=== PATIENT | male | born 1940 ===

== ENCOUNTER 2016-06-13 17:25 | Inpatient (IN) | payer OTHER, SELFPAY ==
[2016-06-13 17:27] VITALS: BMI 20.2
[2016-06-13] MEDS ORDERED: Sodium Chloride 0.9% 500 ML IV STA (17:45)
--- NOTE | 2016-06-13 18:13 | CT ---
PROCEDURE: CT HEAD WITHOUT CONTRAST. HISTORY: ams COMPARISON: None available. TECHNIQUE: Axial computed tomography images were obtained through the head/brain without intravenous contrast. Radiation dose: Total exam DLP = 1146.88 mGy-cm. This CT exam was performed using one or more of the following dose reduction techniques: Automated exposure control, adjustment of the mA and/or kV according to patient size, and/or use of iterative reconstruction technique. FINDINGS: HEMORRHAGE: No intracranial hemorrhage. BRAIN: Diffuse atrophy with prominence of the ventricles and sulci noted. No mass effect or edema. Mild scattered white matter hypodensities, which are nonspecific, but often seen with chronic microvascular ischemic disease. Please note that MRI with diffusion imaging is more sensitive in the detection of acute ischemic event. VENTRICLES: Ventricular prominence may be mildly out of proportion to sulcal size. Prominence may be due to significant central volume loss or mild chronic obstructive hydrocephalus, noncommunicating variant. Normal-pressure hydrocephalus considered only if clinical triad is present. Correlate clinically. CALVARIUM: Unremarkable. PARANASAL SINUSES: Partial opacification of the left anterior ethmoid air cells. Small fluid levels within the left sphenoid and bilateral maxillary sinuses. MASTOID AIR CELLS: Unremarkable as visualized. No inflammatory changes. OTHER FINDINGS: None. IMPRESSION: Ventricular prominence may be mildly out of proportion to sulcal size. Prominence may be due to significant central volume loss or mild chronic obstructive hydrocephalus, noncommunicating variant. Normal-pressure hydrocephalus considered only if clinical triad is present. Correlate clinically. Generalized atrophy. Nonspecific white matter changes. Partial opacification of the left anterior ethmoid air cells. Small fluid levels within the left sphenoid and bilateral maxillary sinuses. Correlate clinically for sinusitis.
--- NOTE | 2016-06-13 18:28 | ED PDOC ---
HPI: Altered Mental Status Time Seen by Provider: 06/13/16 17:33 Chief Complaint (Nursing): Altered Mental Status Chief Complaint (Provider): Altered Mental Status History Per: Other (Obtained from previous medical charts as well as from PD at bedside) History/Exam Limitations: Clinical Condition (oriented x1) Onset Of Symptoms: Cannot Confirm Onset Description Of Symptoms: Confused Usual Baseline: Unknown Exacerbating Factor(s): Unknown Additional Complaint(s): 17:32 Rey Campbell, a 75 year old male, presents to the ED on 06/13/16 accompanied by the police. The patient was found wandering the street and is alert and oriented times 1 at time of initial evaluation. The patient is unable to give any history, limiting HPI/ROS, but denies any complaints at this time. The patient's past medical history was obtained from previous charts, including recent hospitalization at [facility] in April 2016. The patient has pancreatic cancer and started chemotherapy by Dr. Rowan (Hematology/Oncology) on 06/08/16. 18:45 Of note, the patient's daughter was contacted and reports that the patient lives alone and has recently had episodes of confusion. The daughter was concerned about his ability to live by himself and is aware of the patient's past medical history and that he recently has started chemotherapy. Past Medical History Reviewed: Historical Data, Nursing Documentation, Vital Signs Vital Signs: Last Vital Signs Temp 98.6 F 06/13/16 17:55 Pulse 104 H 06/13/16 17:55 Resp 18 06/13/16 17:55 BP 150/94 H 06/13/16 17:55 Pulse Ox 96 06/13/16 17:55 - Medical History PMH: Asthma, Gastritis (Self reported; all other history obtained from previous medical charts), Malignancy (pancreatic cancer) Denies: HIV, Chronic Kidney Disease Other PMH: Recent obstructive jaundice - Surgical History Surgical History: Denies: Pacemaker Other surgeries: Hepatobiliary surgery for obstructive jaundice; ERCP with stenting; when asked, patient does not remember any of these procedures - Family History Family History: States: Unknown Family Hx - Living Arrangements Living Arrangements: Alone - Immunization History Hx Tetanus Toxoid Vaccination: No Hx Influenza Vaccination: No Hx Pneumococcal Vaccination: No - Home Medications Home Medications: Ambulatory Orders Medication Instructions Recorded Dronabinol [Marinol] 2.5 mg PO BID #60 cap 05/11/16 Albuterol HFA [Ventolin HFA 90 2 puff IH Q4H PRN 06/13/16 mcg/actuation (8 g)] Pantoprazole Sodium [Protonix] 20 mg PO DAILY 06/13/16 oxyCODONE/Acetaminophen [Percocet 1 tab PO Q4H PRN 06/13/16 5/325 mg Tab] - Allergies Allergies/Adverse Reactions: Allergies Allergy/AdvReac Type Severity Reaction Status Date / Time No Known Allergies Allergy Verified 06/13/16 17:31 Review of Systems Review Of Systems: ROS cannot be obtained secondary to pt's inabilty to answer questions. (Unable to obtain due to patient's orientation status) Physical Exam - Reviewed Nursing Documentation Reviewed: Yes Vital Signs Reviewed: Yes - Physical Exam Appears: Positive for: Non-toxic, No Acute Distress. Negative for: Well ( appears cachectic and chronically ill ) Head Exam: Positive for: ATRAUMATIC, NORMOCEPHALIC Skin: Positive for: Warm, Dry, Pallor Eye Exam: Positive for: EOMI, PERRL, Other (Pale conjunctiva ) ENT: Positive for: Pharynx Is (Clear), Other (Dry Mucus Membranes) Neck: Positive for: Normal, Painless ROM, Supple, Trachea Midline Cardiovascular/Chest: Positive for: Tachycardia (regular rhythm). Negative for : Murmur Respiratory: Positive for: Normal Breath Sounds (clear to auscultation bilaterally). Negative for: Wheezing, Respiratory Distress Gastrointestinal/Abdominal: Positive for: Other (skin tenting of abdomen). Negative for: Mass, Guarding, Rebound Back: Positive for: Normal Inspection. Negative for: L CVA Tenderness, R CVA Tenderness, Decreased ROM Extremity: Positive for: Normal ROM Lymphatic: Negative for: Adenopathy Neurologic/Psych: Positive for: Alert, Oriented (x1), Mood/Affect (anxious affect), Other (occasional tremor ). Negative for: Motor/Sensory Deficits - Laboratory Results Result Diagrams: 06/14/16 06:20 06/14/16 06:20 - ECG O2 Sat by Pulse Oximetry: 96 (RA) Pulse Ox Interpretation: Normal - CT Scan/US CT Head w/o Contrast Other Rad Studies (CT/US): Read By Radiologist, Radiology Report Reviewed Other Rad Interpretation: See MDM Medical Decision Making Medical Decision Makin:32 Initial Impression: Altered Mental Status Initial Plan: * CT Head w/o Contrast Stat * Electrocardiogram * Alcohol Serum Stat * Ammonia Stat * Comp Metabolic Panel * Drug Screen, Urine * Lact Acid, Plasma Stat * Lipase Stat * Magnesium Stat * Phosphorus Stat * Thyroid Stimulating Hormone * Troponin I Stat * ED Urine dipstick (POC) Stat * CBC (with differential) Stat * Partial Thromoplastin Time [COAG] Stat * Prothrombin Time [COAG] Stat * Chest Portable [RAD] Stat * Blood Culture Stat * Urine Culture Stat * Director Safety Council CONT * Saline Lock Stat * Glucose, Blood, POC Stat * Urinalysis Stat * Type and Screen Routine * Sodium Chloride 0.9% 500 ml IV 500 mls/hr * Reevaluation 18:12 CT Head Report Reviewed: FINDINGS: HEMORRHAGE: No intracranial hemorrhage. BRAIN: Diffuse atrophy with prominence of the ventricles and sulci noted. No mass effect or edema. Mild scattered white matter hypodensities, which are nonspecific, but often seen with chronic microvascular ischemic disease. Please note that MRI with diffusion imaging is more sensitive in the detection of acute ischemic event. VENTRICLES: Ventricular prominence may be mildly out of proportion to sulcal size. Prominence may be due to significant central volume loss or mild chronic obstructive hydrocephalus, noncommunicating variant. Normal-pressure hydrocephalus considered only if clinical triad is present. Correlate clinically. CALVARIUM: Unremarkable. PARANASAL SINUSES: Partial opacification of the left anterior ethmoid air cells. Small fluid levels within the left sphenoid and bilateral maxillary sinuses. MASTOID AIR CELLS: Unremarkable as visualized. No inflammatory changes. OTHER FINDINGS: None. IMPRESSION: Ventricular prominence may be mildly out of proportion to sulcal size. Prominence may be due to significant central volume loss or mild chronic obstructive hydrocephalus, noncommunicating variant. Normal-pressure hydrocephalus considered only if clinical triad is present. Correlate clinically. Generalized atrophy. Nonspecific white matter changes. Partial opacification of the left anterior ethmoid air cells. Small fluid levels within the left sphenoid and bilateral maxillary sinuses. Correlate clinically for sinusitis. 19:[address] Rowan Oncology, who is familiar with patient from previous hospitalization at [facility]. Will follow during this hospitalization. Patient will be admitted to Med/Surgery as a full inpatient under the service of family practice for further treatment of dehydration, leukopenia, and anemia. Daughter has been updated to current plan and is in agreement. Scribe Attestation: Documented by Korina Suh, training under Giselle Kohler, acting as a scribe for Kaia Sanchez MD. Provider Scribe Attestation: All medical record entries made by the Scribe were at my direction and personally dictated by me. I have reviewed the chart and agree that the record accurately reflects my personal performance of the history, physical exam, medical decision making, and the department course for this patient. I have also personally directed, reviewed, and agree with the discharge instructions and disposition. Disposition - Clinical Impression Clinical Impression: Altered mental status, Pancreatic cancer, Pancytopenia - Patient ED Disposition Is Patient to be Admitted: Yes Discussed With Dr.: Arnulfo Randolph Doctor Will See Patient In The: Hospital Counseled Patient/Family Regarding: Studies Performed, Diagnosis - Disposition Disposition Time: 19:42 Condition: FAIR - Pt Status Changed To: Hospital Disposition Of: Inpatient - Admit Certification Admit to Inpatient:: After my assessment, the patient will require hospitalization for at least two midnights. This is because of the severity of symptoms shown, intensity of services needed, and/or the medical risk in this patient being treated as an outpatient. - POA Present On Arrival: None
[2016-06-13 18:57] LABS: ALB/GLOB RATIO 1.1 (1.0-2.1); ALCOHOL SERUM < 10 mg/dl (0-10); ALKALINE PHOSPHATASE 137 U/L (38-126); ALT/SGPT 61 U/L (21-72); AST/SGOT 69 U/L (17-59); BILIRUBIN,TOTAL 1.7 mg/dl (0.2-1.3); BLOOD UREA NITROGEN 19 mg/dl (9-20); CALCIUM 8.9 mg/dL (8.4-10.2); CARBON DIOXIDE 27 mmol/L (22-30); CHLORIDE 87 mmol/L (98-107); GFR AFRICAN-AMERICAN > 60; GLUCOSE,RANDOM 102 mg/dL (75-110); LIPASE 12 U/L (23-300); MAGNESIUM 1.8 MG/DL (1.6-2.3); PHOSPHOROUS 2.8 mg/dl (2.5-4.5); SODIUM 125 mmol/l (132-148); TOTAL PROTEIN 6.6 G/DL (6.3-8.2)
[2016-06-13 19:00] LABS: HEMATOCRIT 26.2 % (35.0-51.0)
[2016-06-13 19:01] LABS: BASO % 0.3 % (0.0-2.0); EOS % 0.1 % (0.0-4.0); LYMPH # 0.1 K/uL (1.0-4.3); LYMPH % 15.8 % (20.0-40.0); MEAN CELL VOLUME 91.1 fl (80.0-94.0); MEAN CORPUSCULAR HEMOGLOBIN 31.1 pg (27.0-31.0); MEAN CORPUSCULAR HGB CONC 34.1 g/dL (33.0-37.0); MEAN PLATELET VOLUME 7.4 fl (7.2-11.7); MONO % 5.1 % (0.0-10.0); NEUT # 0.6 K/uL (1.8-7.0); NEUT % 78.7 % (50.0-75.0); RED CELL DISTRIBUTION WIDTH 15.6 % (11.5-14.5)
[2016-06-13 19:13] LABS: WHITE BLOOD COUNT 0.7 K/uL (4.8-10.8)
[2016-06-13 19:26] LABS: THYROID STIMULATING HORMONE 2.52 mIU/ML (0.46-4.68)
[2016-06-13 20:04] LABS: PARTIAL THROMBOPLASTIN TIME 32.2 SECONDS (23.3-32.5)
[2016-06-13] MEDS ORDERED: Albuterol HFA 90 mcg/actuation (8 g) IH PRN (20:29)
[2016-06-13] MEDS ORDERED: Oxycodone/Acetaminophen 5/325 mg Tab PO PRN (20:30)
[2016-06-13] MEDS ORDERED: Sodium Chloride 0.9% 1,000 ML IV SCH (20:30)
--- NOTE | 2016-06-13 20:37 | CP.PCM.HP ---
History of Present Illness - History of Present Illness History of Present Illness: 75yo M with PMHx pancreatic CA, asthma, obstructive jaundice, malnutrition admitted for dehydration, leukopenia. Pt had recent hospitalization 05/11/16 for abd pain d/t obstructive jaundice with MRCP and ERCP w/[facility] PET/CT 04/27/16 showed no metastatic disease. Pt was found wandering around bus stop. Pt is not cooperative for remaining history and ROS. Recently started on chemo with H/O Dr. Rowan. Chart reviewed per [facility] and [facility] PMHx: as above FHx: mother-DM SHx: denies Social Hx: exsmoker, denies EtOH, drugs Allergies: NKDA Meds: checked in [facility] ED course VSS CT head-consider NPH if clinically correlated, otherwise no acute change EKG NSR CXR CBC, leukopenia 0.7, thrombocytopenia plt 69 INR 1.13, PTT 32.2 CMP- Na 125, BUN/Cr 19/0.6, Bili 1.7, AST/ALT/Alk phos 69/61/137 Ammonia <9 LA 1.3 Mg 1.8 Phos 2.8 troponin neg lipase 12 TSH WNL Albumin 3.4 U tox - positive cannabinoids blood cx urine cx NS 500ml bolus x1 c/s H/O Dr. Rowan Present on Admission - Present on Admission Any Indicators Present on Admission: No Review of Systems - Review of Systems Review of Systems: limited ROS as pt not cooperative pt states chronic abd pain comfortable Past Patient History - Past Medical History & Family History Past Medical History?: Yes - Past Social History Smoking Status: Former Smoker - CARDIAC Hx Pacemaker: No - PULMONARY Hx Asthma: Yes - NEUROLOGICAL Hx Neurological Disorder: No Hx Paralysis: No - HEENT Hx HEENT Problems: No - RENAL Hx Chronic Kidney Disease: No - ENDOCRINE/METABOLIC Hx Endocrine Disorders: No Other/Comment: pre diabetic - HEMATOLOGICAL/ONCOLOGICAL Hx Human Immunodeficiency Virus (HIV): No - INTEGUMENTARY Hx Dermatological Problems: Yes Hx Squamous Cell: Yes (FACE) - MUSCULOSKELETAL/RHEUMATOLOGICAL Hx Musculoskeletal Disorders: No - GASTROINTESTINAL Hx Gastritis: Yes (Self reported; all other history obtained from previous medical charts) - GENITOURINARY/GYNECOLOGICAL Hx Genitourinary Disorders: No - PSYCHIATRIC Hx Psychophysiologic Disorder: No Hx Substance Use: No - SURGICAL HISTORY Hx Surgeries: Yes (COLONOSCOPY) - ANESTHESIA Hx Anesthesia: No Hx Anesthesia Reactions: No Hx Malignant Hyperthermia: No Meds Allergies/Adverse Reactions: Allergies Allergy/AdvReac Type Severity Reaction Status Date / Time No Known Allergies Allergy Verified 06/13/16 17:31 Physical Exam - Constitutional Appears: Non-toxic, No Acute Distress - Head Exam Head Exam: ATRAUMATIC, NORMAL INSPECTION - Eye Exam Eye Exam: Normal appearance - ENT Exam ENT Exam: Mucous Membranes Dry - Neck Exam Neck exam: Positive for: Normal Inspection - Respiratory Exam Respiratory Exam: Clear to Auscultation Bilateral - Cardiovascular Exam Cardiovascular Exam: REGULAR RHYTHM - GI/Abdominal Exam GI & Abdominal Exam: Soft, Tenderness - Extremities Exam Extremities exam: Positive for: normal capillary refill, pedal edema (trace). Negative for: tenderness Additional comments: abrasion b/l knees with granulation tissue - Neurological Exam Neurological exam: Alert Additional comments: oriented to person - Skin Skin Exam: Dry Results - Vital Signs Recent Vital Signs: Last Vital Signs Temp 98.6 F 06/13/16 17:55 Pulse 104 H 06/13/16 17:55 Resp 18 06/13/16 17:55 BP 150/94 H 06/13/16 17:55 Pulse Ox 96 06/13/16 20:29 - Labs Result Diagrams: 06/13/16 18:56 06/13/16 18:10 Labs: Laboratory Results - last 24 hr 06/13/16 06/13/16 06/13/16 17:50 18:10 18:10 WBC RBC Hgb Hct MCV MCH MCHC RDW Plt Count MPV Neut % (Auto) Lymph % (Auto) [place] % (Auto) Eos % (Auto) Baso % (Auto) Neut # Lymph # [place] # Eos # Baso # PT INR APTT Sodium 125 L Potassium 4.0 Chloride 87 L Carbon Dioxide 27 Anion Gap 15 BUN 19 Creatinine 0.6 L Est GFR ( Amer) > 60 Est GFR (Non-Af Amer) > 60 Random Glucose 102 Lactic Acid 1.3 Calcium 8.9 Phosphorus 2.8 Magnesium 1.8 Total Bilirubin 1.7 H AST 69 H ALT 61 Alkaline Phosphatase 137 H Ammonia < 9 L Troponin I < 0.0120 Total Protein 6.6 Albumin 3.4 L Globulin 3.2 Albumin/Globulin Ratio 1.1 Lipase 12 L TSH 3rd Generation 2.52 Urine Opiates Screen Urine Methadone Screen Ur Barbiturates Screen Ur Phencyclidine Scrn Ur Amphetamines Screen U Benzodiazepines Scrn U Oth Cocaine Metabols U Cannabinoids Screen Alcohol, Quantitative < 10 Blood Type Antibody Screen BBK History Checked 06/13/16 06/13/16 06/13/16 18:10 18:56 19:43 WBC 0.7 L* D RBC 2.87 L Hgb 8.9 L D Hct 26.2 L MCV 91.1 MCH 31.1 H MCHC 34.1 RDW 15.6 H Plt Count 69 L D MPV 7.4 Neut % (Auto) 78.7 H Lymph % (Auto) 15.8 L [place] % (Auto) 5.1 Eos % (Auto) 0.1 Baso % (Auto) 0.3 Neut # 0.6 L Lymph # 0.1 L [place] # 0.0 Eos # 0.0 Baso # 0.0 PT 11.7 H INR 1.13 H APTT 32.2 Sodium Potassium Chloride Carbon Dioxide Anion Gap BUN Creatinine Est GFR ( Amer) Est GFR (Non-Af Amer) Random Glucose Lactic Acid Calcium Phosphorus Magnesium Total Bilirubin AST ALT Alkaline Phosphatase Ammonia Troponin I Total Protein Albumin Globulin Albumin/Globulin Ratio Lipase TSH 3rd Generation Urine Opiates Screen Urine Methadone Screen Ur Barbiturates Screen Ur Phencyclidine Scrn Ur Amphetamines Screen U Benzodiazepines Scrn U Oth Cocaine Metabols U Cannabinoids Screen Alcohol, Quantitative Blood Type O POSITIVE Antibody Screen Negative BBK History Checked No verified bt 06/13/16 19:45 WBC RBC Hgb Hct MCV MCH MCHC RDW Plt Count MPV Neut % (Auto) Lymph % (Auto) [place] % (Auto) Eos % (Auto) Baso % (Auto) Neut # Lymph # [place] # Eos # Baso # PT INR APTT Sodium Potassium Chloride Carbon Dioxide Anion Gap BUN Creatinine Est GFR ( Amer) Est GFR (Non-Af Amer) Random Glucose Lactic Acid Calcium Phosphorus Magnesium Total Bilirubin AST ALT Alkaline Phosphatase Ammonia Troponin I Total Protein Albumin Globulin Albumin/Globulin Ratio Lipase TSH 3rd Generation Urine Opiates Screen Negative Urine Methadone Screen Negative Ur Barbiturates Screen Negative Ur Phencyclidine Scrn Negative Ur Amphetamines Screen Negative U Benzodiazepines Scrn Negative U Oth Cocaine Metabols Negative U Cannabinoids Screen Positive H Alcohol, Quantitative Blood Type Antibody Screen BBK History Checked Assessment & Plan - Assessment and Plan (Free Text) Assessment: 75yo M with PMHx pancreatic CA, asthma, obstructive jaundice, malnutrition admitted for dehydration, leukopenia. dehydration -BUN/Cr 19/0.6 -NS MIVF leukopenia -WBC 0.7 -H/O on board, appreciate input -will likely decrease once pt recieves IV fluid -blood cx -urine cx thrombocytopenia -plt 69 -hold on lovenox -H/O on board, appreciate input hyponatremia -Na 125 -confusion, AAOx1 -NS MIVF, consider stopping once dehydration and confusion improves -check Na q4 hr, slow correction <8mEq in 1st 24hr elevated LFTs -h/o obstructive jaundice recently tx with MRCP/ERCP and stenting -Bili 1.7 -AST/ALT/Alk phos 69/61/137 -INR 1.13, PTT 32.2 asthma -albuterol prn pancreatic CA -PET/CT 04/27/16 showed no metastatic disease -H/O on board, appreciate input DVT ppx -SCDs -will hold on pharmacological agent as plt likely to decrease once pt receives MIVF Decision To Admit - Pt Status Changed To: Hospital Disposition Of: Inpatient - Admit Certification Admit to Inpatient:: After my assessment, the patient will require hospitalization for at least two midnights. This is because of the severity of symptoms shown, intensity of services needed, and/or the medical risk in this patient being treated as an outpatient. - . Bed Request Type: Telemetry Admitting Physician: Angela Christianson
[2016-06-13] MEDS: Sodium Chloride 0.9% 1,000 ML IV SCH (21:00)
[2016-06-13 21:23] LABS: URINE APPEARANCE CLEAR (CLEAR); URINE BILIRUBIN NEGATIVE (NEGATIVE); URINE BLOOD NEGATIVE (NEGATIVE); URINE COLOR YELLOW (YELLOW); URINE GLUCOSE (UA) NEG (Normal); URINE KETONE TRACE mg/dL (NEGATIVE); URINE LEUKOCYTE ESTERASE NEG Leu/uL (Negative); URINE PROTEIN NEGATIVE (NEGATIVE); URINE UROBILINOGEN 0.2-1.0 mg/dL (0.2-1.0)
[2016-06-14 06:56] LABS: ALKALINE PHOSPHATASE 106 U/L (38-126); ALT/SGPT 55 U/L (21-72); AST/SGOT 58 U/L (17-59); BILIRUBIN,TOTAL 1.3 mg/dl (0.2-1.3); BLOOD UREA NITROGEN 13 mg/dl (9-20); CALCIUM 8.1 mg/dL (8.4-10.2); CARBON DIOXIDE 26 mmol/L (22-30); CHLORIDE 90 mmol/L (98-107); GFR AFRICAN-AMERICAN > 60; GLUCOSE,RANDOM 82 mg/dL (75-110); POTASSIUM 3.3 MMOL/L (3.6-5.0); SODIUM 127 mmol/l (132-148); TOTAL PROTEIN 5.6 G/DL (6.3-8.2)
[2016-06-14 07:25] LABS: HEMATOCRIT 25.8 % (35.0-51.0); RED CELL DISTRIBUTION WIDTH 15.8 % (11.5-14.5)
[2016-06-14] MEDS ORDERED: PRO AIR HFA 8.5GM INHALER(FOR OR USE ONLY) IH PRN (07:30)
[2016-06-14 07:32] LABS: WHITE BLOOD COUNT 1.5 K/uL (4.8-10.8)
[2016-06-14] MEDS ORDERED: Potassium CL 10mEq/100ml 100 ML IVPB SCH (08:00)
--- NOTE | 2016-06-14 08:09 | CP.PCM.PN ---
Subjective - Date & Time of Evaluation Date of Evaluation: 06/14/16 Time of Evaluation: 08:09 - Subjective Subjective: pt seen and examined at bedside along with Dr. Beugm. No acute events overnight. Lying in bed comfortably, NAD, under 1:1 supervision. Pt is alert and oriented to person and time, was unsure of which hospital he was at but knows he is currently admitted. Gave phone number to his daughter. No new complaints. Denies fever/chills, headaches, visual disturbances, CP/SOB/ palpitations, N/V/D/C, urinary symptoms, numbness/tingling, leg pain. Objective - Vital Signs/Intake and Output Vital Signs (last 24 hours): Temp Pulse Resp BP Pulse Ox 99.0 F 80 20 117/68 93 L 06/14/16 07:34 06/14/16 07:34 06/14/16 07:34 06/14/16 07:34 06/14/16 07:34 - Medications Medications: Current Medications Acetaminophen (Tylenol 325mg Tab) 650 mg PO Q6 PRN PRN Reason: Pain, Mild (1-3) Albuterol Sulfate (Proair Hfa) 2 puff IH Q4H PRN PRN Reason: Shortness of Breath Home Med (Dronabinol [Marinol]) 2.5 mg PO BID [facility] Sodium Chloride (Sodium Chloride 0.9%) 1,000 mls @ 100 mls/hr IV .Q10H [facility] Stop: 06/14/16 20:35 Last Admin: 06/13/16 21:00 Dose: 100 mls/hr Potassium Chloride (Potassium Chloride 10 Meq/100 Ml) 100 mls @ 100 mls/hr IVPB Q1 NGA Stop: 06/14/16 09:59 Ketorolac Tromethamine (Toradol) 15 mg IVP Q6 PRN PRN Reason: Pain, moderate (4-7) Ondansetron HCl (Zofran Inj) 4 mg IVP Q6 PRN PRN Reason: Nausea/Vomiting Oxycodone/Acetaminophen (Percocet 5/325 Mg Tab) 1 tab PO Q4H PRN PRN Reason: Pain, severe (8-10) Stop: 06/16/16 20:31 Pantoprazole Sodium (Protonix Ec Tab) 20 mg PO DAILY [facility] - Labs Labs: 06/14/16 06:20 06/14/16 06:20 PT 13.4 SECONDS (9.6-11.2) H 06/14/16 06:20 INR 1.29 (0.92-1.08) H 06/14/16 06:20 APTT 40.0 SECONDS (23.3-32.5) H 06/14/16 06:20 - Constitutional Appears: Non-toxic, No Acute Distress, Chronically Ill - Eye Exam Eye Exam: EOMI. absent: Conjunctival injection, Scleral icterus Pupil Exam: PERRL - ENT Exam ENT Exam: Mucous Membranes Moist - Respiratory Exam Respiratory Exam: Decreased Breath Sounds, Clear to Ausculation Bilateral, NORMAL BREATHING PATTERN. absent: Accessory Muscle Use, Rales, Rhonchi, Wheezes , Respiratory Distress - Cardiovascular Exam Cardiovascular Exam: REGULAR RHYTHM, RRR, +S1, +S2. absent: Tachycardia, JVD, Rubs, Murmur - GI/Abdominal Exam GI & Abdominal Exam: Distended (tympanic to percussion, distention secondary to gas), Soft, Tenderness (epigastric tenderness to palpation), Normal Bowel Sounds. absent: Guarding, Rigid, Mass - Extremities Exam Extremities Exam: Full ROM, Normal Inspection. absent: Calf Tenderness, Pedal Edema - Neurological Exam Neurological Exam: Alert, Awake, CN II-XII Intact, Oriented x3 - Psychiatric Exam Psychiatric exam: Normal Affect, Normal Mood - Skin Skin Exam: Dry, Intact, Normal Color, Warm Assessment and Plan (1) Dehydration Assessment & Plan: -delerium resolved -BUN/Cr: 13/0.5 -IV NS @ 100m/s per hr -f/u BMP Status: Acute (2) Pancytopenia Assessment & Plan: Leukopenia: -WBC 0.7 on admission, now 1.5 -blood cx: pending -urine cx: pending Normocytic Anemia: -MCV: 91.0 -8.8 on admission, now 8.9 -will continue to monitor Thrombocytopenia: -plt 69 now 50 -hold Lovenox -Heme/Onc on board, Dr. Rowan made aware. appreciate input Status: Acute (3) Hyponatremia Assessment & Plan: -History of Hyponatremia at 125 -IV NS 1L @ 100m/s -F/U BMP Status: Chronic (4) Pancreatic carcinoma Assessment & Plan: -PET/CT 04/27/16 showed no metastatic disease -history of Obstructive jaundice, s/p Stenting, Abnormal T.Bili and Liver enzymes upon admission, as of 06/14, tests normalized -will monitor CMP for changes in T. Bili, AST/ALT. -Heme/onc onboard, appreciate input Status: Chronic (5) Intermittent asthma Assessment & Plan: Albuterol 2 puff IH Q4 PRN Status: Chronic (6) DVT prophylaxis Assessment & Plan: -SCDs for now -holding Lovenox due to thrombocytopenia Status: Acute
[2016-06-14] MEDS ORDERED: Potassium Chloride 20 mEq ER Tab PO ONE (08:42)
--- NOTE | 2016-06-14 08:43 | CARD ---
APPROVED REPORT EKG Measurement Heart [id number] <Conclusion> Normal sinus rhythm with sinus arrhythmia Normal ECG
[2016-06-14] MEDS: Sodium Chloride 0.9% 1,000 ML IV SCH ×2 (08:52→21:48)
[2016-06-14] MEDS: Pantoprazole 20 mg EC Tab PO SCH (08:53)
[2016-06-14] MEDS ORDERED: DRONABINOL 2.5 MG PO SCH (09:00)
--- NOTE | 2016-06-14 11:03 | RAD ---
HISTORY: ams COMPARISON: None available. TECHNIQUE: Chest, one view. FINDINGS: LUNGS: No focal consolidation. Please note that chest x-ray has limited sensitivity for the detection of pulmonary masses. PLEURA: No significant pleural effusion identified. No definite pneumothorax . CARDIOVASCULAR: Heart size appears top normal. Dense atherosclerotic calcification of the aorta. OSSEOUS STRUCTURES: Degenerative changes of the spine and shoulders. Acromioclavicular arthropathy. VISUALIZED UPPER ABDOMEN: Unremarkable. OTHER FINDINGS: None. IMPRESSION: No focal consolidation, significant pleural effusion, or definite pneumothorax identified.
--- NOTE | 2016-06-14 23:31 | CP.PCM.CON ---
History of Present Illness - History of Present Illness History of Present Illness: 75 year old male with pancreatic adenocarcinoma diagnosed in , complicated by obstructive jaundice requiring ERCP and stent, not a surgical candidate, on chemotherapy, admitted with AMS and pancytopenia. The patient was found confused on the street and brought in by the police. He has received IV hydration and has improvement in his mental status. Past medical history: Pancreatic cancer Past surgical history: None Family history: Denies hematologic and oncologic problems Social history: Denies tobacco, alcohol, and illicit drug use. Allergies: NKA Review of systems: All remaining review of systems including HEENT, cardiovascular, respiratory, gastrointestinal, genitourinary, musculoskeletal, dermatologic, neurologic, and psychiatric are negative unless mentioned in the HPI Past Patient History - Past Medical History & Family History Past Medical History?: Yes - Past Social History Smoking Status: Former Smoker - CARDIAC Hx Pacemaker: No - PULMONARY Hx Asthma: Yes - NEUROLOGICAL Hx Neurological Disorder: No Hx Paralysis: No - HEENT Hx HEENT Problems: No - RENAL Hx Chronic Kidney Disease: No - ENDOCRINE/METABOLIC Hx Endocrine Disorders: Yes Other/Comment: pre diabetic - HEMATOLOGICAL/ONCOLOGICAL Hx Human Immunodeficiency Virus (HIV): No - INTEGUMENTARY Hx Dermatological Problems: Yes Hx Squamous Cell: Yes (FACE) - MUSCULOSKELETAL/RHEUMATOLOGICAL Hx Musculoskeletal Disorders: No Hx Falls: No - GASTROINTESTINAL Hx Gastritis: Yes (Self reported; all other history obtained from previous medical charts) - GENITOURINARY/GYNECOLOGICAL Hx Genitourinary Disorders: No - PSYCHIATRIC Hx Psychophysiologic Disorder: No Hx Substance Use: No - SURGICAL HISTORY Hx Surgeries: Yes (COLONOSCOPY) - ANESTHESIA Hx Anesthesia: No Hx Anesthesia Reactions: No Hx Malignant Hyperthermia: No Meds Allergies/Adverse Reactions: Allergies Allergy/AdvReac Type Severity Reaction Status Date / Time No Known Allergies Allergy Verified 06/13/16 17:31 - Medications Medications: Current Medications Acetaminophen (Tylenol 325mg Tab) 650 mg PO Q6 PRN PRN Reason: Pain, Mild (1-3) Acetaminophen (Tylenol 325mg Tab) 650 mg PO Q6 PRN PRN Reason: Fever >100.4 F Last Admin: 06/14/16 21:46 Dose: 650 mg Albuterol Sulfate (Proair Hfa) 2 puff IH Q4H PRN PRN Reason: Shortness of Breath Home Med (Dronabinol [Marinol]) 2.5 mg PO BID [facility] Sodium Chloride (Sodium Chloride 0.9%) 1,000 mls @ 100 mls/hr IV .Q10H [facility] Stop: 06/15/16 21:07 Last Admin: 06/14/16 21:48 Dose: 100 mls/hr Ketorolac Tromethamine (Toradol) 15 mg IVP Q6 PRN PRN Reason: Pain, moderate (4-7) Ondansetron HCl (Zofran Inj) 4 mg IVP Q6 PRN PRN Reason: Nausea/Vomiting Oxycodone/Acetaminophen (Percocet 5/325 Mg Tab) 1 tab PO Q4H PRN PRN Reason: Pain, severe (8-10) Stop: 06/16/16 20:31 Last Admin: 06/14/16 20:04 Dose: 1 tab Pantoprazole Sodium (Protonix Ec Tab) 20 mg PO DAILY [facility] Last Admin: 06/14/16 08:53 Dose: 20 mg Physical Exam - Constitutional Appears: Cachectic - ENT Exam ENT Exam: Mucous Membranes Dry - Respiratory Exam Respiratory Exam: NORMAL BREATHING PATTERN - Cardiovascular Exam Cardiovascular Exam: +S1, +S2 - GI/Abdominal Exam GI & Abdominal Exam: Normal Bowel Sounds - Extremities Exam Extremities exam: Positive for: normal inspection Results - Vital Signs Recent Vital Signs: Last Vital Signs Temp 98.8 F 06/14/16 22:46 Pulse 109 H 06/14/16 21:25 Resp 20 06/14/16 21:25 BP 128/69 06/14/16 21:25 Pulse Ox 92 L 06/14/16 21:25 - Labs Result Diagrams: 06/14/16 06:20 06/14/16 06:20 Labs: Laboratory Results - last 24 hr 06/14/16 06/14/16 06/14/16 00:33 06:20 06:20 WBC 1.5 L* D RBC 2.83 L Hgb 8.8 L Hct 25.8 L MCV 91.0 MCH 31.0 MCHC 34.0 RDW 15.8 H Plt Count 50 L PT 13.4 H INR 1.29 H APTT 40.0 H Sodium 125 L Potassium Chloride Carbon Dioxide Anion Gap BUN Creatinine Est GFR ( Amer) Est GFR (Non-Af Amer) Random Glucose Calcium Total Bilirubin AST ALT Alkaline Phosphatase Total Protein Albumin Globulin Albumin/Globulin Ratio 06/14/16 06:20 WBC RBC Hgb Hct MCV MCH MCHC RDW Plt Count PT INR APTT Sodium 127 L Potassium 3.3 L Chloride 90 L Carbon Dioxide 26 Anion Gap 14 BUN 13 Creatinine 0.5 L Est GFR ( Amer) > 60 Est GFR (Non-Af Amer) > 60 Random Glucose 82 Calcium 8.1 L Total Bilirubin 1.3 AST 58 ALT 55 Alkaline Phosphatase 106 Total Protein 5.6 L Albumin 2.8 L Globulin 2.8 Albumin/Globulin Ratio 1.0 Assessment & Plan (1) Failure to thrive Assessment and Plan: secondary to malignancy and chemotherapy discussed declining performance status and morbidity with further cancer treatment palliative care f/u Status: Acute (2) Pancytopenia Assessment and Plan: secondary to chemotherapy WBC improving; add differential to CBC daily no transfusion indication Status: Acute (3) Pancreatic cancer Assessment and Plan: palliative care Status: Acute
[2016-06-15 07:44] LABS: BASO % 0.2 % (0.0-2.0); EOS % 0.1 % (0.0-4.0); HEMATOCRIT 23.1 % (35.0-51.0); LYMPH # 0.5 K/uL (1.0-4.3); LYMPH % 20.2 % (20.0-40.0); MEAN CORPUSCULAR HEMOGLOBIN 30.8 pg (27.0-31.0); MEAN CORPUSCULAR HGB CONC 33.5 g/dL (33.0-37.0); MEAN PLATELET VOLUME 7.4 fl (7.2-11.7); MONO # 0.1 K/uL (0.0-0.8); MONO % 4.9 % (0.0-10.0); NEUT # 1.7 K/uL (1.8-7.0); NEUT % 74.6 % (50.0-75.0); RED CELL DISTRIBUTION WIDTH 16.1 % (11.5-14.5); WHITE BLOOD COUNT 2.3 K/uL (4.8-10.8)
[2016-06-15 08:08] LABS: ALB/GLOB RATIO 0.8 (1.0-2.1); ALKALINE PHOSPHATASE 96 U/L (38-126); ALT/SGPT 46 U/L (21-72); AST/SGOT 48 U/L (17-59); BILIRUBIN,TOTAL 1.1 mg/dl (0.2-1.3); BLOOD UREA NITROGEN 14 mg/dl (9-20); CALCIUM 8.1 mg/dL (8.4-10.2); CARBON DIOXIDE 25 mmol/L (22-30); CHLORIDE 95 mmol/L (98-107); GFR AFRICAN-AMERICAN > 60; GLUCOSE,RANDOM 99 mg/dL (75-110); POTASSIUM 3.6 MMOL/L (3.6-5.0); SODIUM 123 mmol/l (132-148); TOTAL PROTEIN 5.1 G/DL (6.3-8.2)
[2016-06-15] MEDS: Pantoprazole 20 mg EC Tab PO SCH (08:46)
[2016-06-15] MEDS: Sodium Chloride 0.9% 1,000 ML IV SCH (08:48)
--- NOTE | 2016-06-15 09:43 | CP.PCM.PN ---
Subjective - Date & Time of Evaluation Date of Evaluation: 06/15/16 Time of Evaluation: 07:10 - Subjective Subjective: pt seen and examined at bedside this morning. Spiking fevers with Tmax of 102.3 F over night noted. Repeat Urine and Blood Cx taken. Fever controlled with Tylenol. No other acute events overnight. Pt reports sleeping well and has no new complaints. More oriented today. OOB/ambulating with assistance. No longer on 1:1. No medical complaints, tolerating PO intake without difficulty. Denies chills, headaches, visual disturbances, CP/SOB/MORTON/palpitations, N/V/D, urinary symptoms, numbness/tingling. Objective - Vital Signs/Intake and Output Vital Signs (last 24 hours): Temp Pulse Resp BP Pulse Ox 97.5 F L 60 20 101/61 95 06/15/16 07:25 06/15/16 07:25 06/15/16 07:25 06/15/16 07:25 06/15/16 07:25 Intake and Output: 06/15/16 06/15/16 06:59 18:59 Intake Total 1000 Balance 1000 - Medications Medications: Current Medications Acetaminophen (Tylenol 325mg Tab) 650 mg PO Q6 PRN PRN Reason: Pain, Mild (1-3) Acetaminophen (Tylenol 325mg Tab) 650 mg PO Q6 PRN PRN Reason: Fever >100.4 F Last Admin: 06/14/16 21:46 Dose: 650 mg Albuterol Sulfate (Proair Hfa) 2 puff IH Q4H PRN PRN Reason: Shortness of Breath Home Med (Dronabinol [Marinol]) 2.5 mg PO BID [facility] Sodium Chloride (Sodium Chloride 0.9%) 1,000 mls @ 100 mls/hr IV .Q10H [facility] Stop: 06/15/16 21:07 Last Admin: 06/15/16 08:48 Dose: 100 mls/hr Ketorolac Tromethamine (Toradol) 15 mg IVP Q6 PRN PRN Reason: Pain, moderate (4-7) Ondansetron HCl (Zofran Inj) 4 mg IVP Q6 PRN PRN Reason: Nausea/Vomiting Oxycodone/Acetaminophen (Percocet 5/325 Mg Tab) 1 tab PO Q4H PRN PRN Reason: Pain, severe (8-10) Stop: 06/16/16 20:31 Last Admin: 06/14/16 20:04 Dose: 1 tab Pantoprazole Sodium (Protonix Ec Tab) 20 mg PO DAILY N[facility] Last Admin: 06/15/16 08:46 Dose: 20 mg - Labs Labs: 06/15/16 06:40 06/15/16 06:40 PT 13.4 SECONDS (9.6-11.2) H 06/14/16 06:20 INR 1.29 (0.92-1.08) H 06/14/16 06:20 APTT 40.0 SECONDS (23.3-32.5) H 06/14/16 06:20 - Constitutional Appears: Non-toxic, No Acute Distress, Cachectic, Chronically Ill - Eye Exam Eye Exam: EOMI Pupil Exam: PERRL - ENT Exam ENT Exam: Mucous Membranes Moist - Neck Exam Neck Exam: absent: Lymphadenopathy - Respiratory Exam Respiratory Exam: Decreased Breath Sounds, Clear to Ausculation Bilateral, NORMAL BREATHING PATTERN. absent: Rales, Rhonchi, Wheezes - Cardiovascular Exam Cardiovascular Exam: REGULAR RHYTHM, RRR, +S1, +S2. absent: Tachycardia, JVD, Rubs - GI/Abdominal Exam GI & Abdominal Exam: Distended (secondary to gas), Soft, Normal Bowel Sounds. absent: Firm, Guarding, Rigid, Tenderness, Mass - Extremities Exam Extremities Exam: Normal Inspection. absent: Calf Tenderness, Pedal Edema, Tenderness - Back Exam Back Exam: absent: CVA tenderness (L), CVA tenderness (R) - Neurological Exam Neurological Exam: Alert, Awake, CN II-XII Intact, Oriented x3 - Psychiatric Exam Psychiatric exam: Normal Affect, Normal Mood - Skin Skin Exam: Dry, Intact, Normal Color, Warm Assessment and Plan (1) Dehydration Assessment & Plan: -delirium resolved - Na: 123 -BUN/Cr: 14/0.6 -IV NS @ 100m/s per hr -f/u BMP -f/u B9, B12, Lactic acid, AM Cortisol Status: Acute (2) Pancytopenia Assessment & Plan: Leukopenia: -WBC: 2.3 -blood cx: 1st specimen negative for growth after 24 hours, f/u second cx -urine cx: 1st specimen negative for growth after 24 hours, f/u second cx Normocytic Anemia: -MCV: 91.0 -Hb: 7.8 -Type and Screen -consider possible transfusion -will continue to monitor Thrombocytopenia: -plt: 41 -hold Lovenox As per Dr. Rowan: pancytopenia is most likely secondary to chemotherapy, add CBC with diff daily to follow. no transfusion indicated for now, pt is not a good candidate for chemotherapy, recommends palliative care consult. -Spiking fevers overnight, no apparent source, ID consult appreciated. Status: Acute Status: Acute (3) Hyponatremia Assessment & Plan: -Na: 123 today -AM Cortisol -IV fluids, NS @ 100mls/hr -f/u BMP Status: Chronic (4) Pancreatic carcinoma Assessment & Plan: palliative care as per Heme/onc, pt not a good candidate for chemotherapy Status: Chronic (5) Intermittent asthma Assessment & Plan: Albuterol 2 puff IH Q4 PRN Status: Chronic (6) DVT prophylaxis Assessment & Plan: -SCDS -Ambulation -No anticoagulation as pt has severe thrombocytopenia Status: Acute
[2016-06-15 12:45] LABS: BLOOD UREA NITROGEN 15 mg/dl (9-20); CALCIUM 8.2 mg/dL (8.4-10.2); CARBON DIOXIDE 25 mmol/L (22-30); CHLORIDE 96 mmol/L (98-107); GFR AFRICAN-AMERICAN > 60; GLUCOSE,RANDOM 157 mg/dL (75-110); POTASSIUM 3.5 MMOL/L (3.6-5.0); SODIUM 127 mmol/l (132-148)
[2016-06-15] MEDS ORDERED: Potassium Chloride 20 mEq ER Tab PO ONE (13:13)
--- NOTE | 2016-06-15 18:39 | CP.PCM.PN ---
Subjective - Date & Time of Evaluation Date of Evaluation: 06/15/16 Time of Evaluation: 15:25 - Subjective Subjective: Feeling better Objective - Vital Signs/Intake and Output Vital Signs (last 24 hours): Temp Pulse Resp BP Pulse Ox 97.5 F L 60 20 101/61 95 06/15/16 07:25 06/15/16 07:25 06/15/16 07:25 06/15/16 07:25 06/15/16 07:25 Intake and Output: 06/15/16 06/15/16 06:59 18:59 Intake Total 1000 Balance 1000 - Medications Medications: Current Medications Acetaminophen (Tylenol 325mg Tab) 650 mg PO Q6 PRN PRN Reason: Pain, Mild (1-3) Acetaminophen (Tylenol 325mg Tab) 650 mg PO Q6 PRN PRN Reason: Fever >100.4 F Last Admin: 06/14/16 21:46 Dose: 650 mg Albuterol Sulfate (Proair Hfa) 2 puff IH Q4H PRN PRN Reason: Shortness of Breath Home Med (Dronabinol [Marinol]) 2.5 mg PO BID [facility] Sodium Chloride (Sodium Chloride 0.9%) 1,000 mls @ 100 mls/hr IV .Q10H [facility] Stop: 06/15/16 21:07 Last Admin: 06/15/16 08:48 Dose: 100 mls/hr Ketorolac Tromethamine (Toradol) 15 mg IVP Q6 PRN PRN Reason: Pain, moderate (4-7) Ondansetron HCl (Zofran Inj) 4 mg IVP Q6 PRN PRN Reason: Nausea/Vomiting Oxycodone/Acetaminophen (Percocet 5/325 Mg Tab) 1 tab PO Q4H PRN PRN Reason: Pain, severe (8-10) Stop: 06/16/16 20:31 Last Admin: 06/14/16 20:04 Dose: 1 tab Pantoprazole Sodium (Protonix Ec Tab) 20 mg PO DAILY [facility] Last Admin: 06/15/16 08:46 Dose: 20 mg - Labs Labs: 06/15/16 11:30 06/15/16 12:17 PT 13.4 SECONDS (9.6-11.2) H 06/14/16 06:20 INR 1.29 (0.92-1.08) H 06/14/16 06:20 APTT 40.0 SECONDS (23.3-32.5) H 06/14/16 06:20 - Constitutional Appears: Cachectic - Head Exam Head Exam: ATRAUMATIC - ENT Exam ENT Exam: Mucous Membranes Dry - Respiratory Exam Respiratory Exam: NORMAL BREATHING PATTERN - Cardiovascular Exam Cardiovascular Exam: +S1, +S2 - GI/Abdominal Exam GI & Abdominal Exam: Normal Bowel Sounds - Extremities Exam Extremities Exam: Normal Inspection Assessment and Plan (1) Failure to thrive Assessment & Plan: supportive care pt is hopeful he can get stronger to cont. chemotherapy but discussed that further chemotherapy would cause more morbidity. Status: Acute (2) Pancytopenia Assessment & Plan: secondary to chemotherapy Status: Acute (3) Pancreatic cancer Assessment & Plan: supportive care palliative care Status: Acute
--- NOTE | 2016-06-15 19:11 | CP.PCM.CON ---
History of Present Illness - History of Present Illness History of Present Illness: FEVER IN A CYTOPENIC PT ADD ANTIBIOTIC RX LOREN FOLLOW AWAIT CULTURES 75yo M with PMHx pancreatic CA, asthma, obstructive jaundice, malnutrition admitted for dehydration, leukopenia. Pt had recent hospitalization 05/11/16 for abd pain d/t obstructive jaundice with MRCP and ERCP w/stenting performed by GI at [facility] [place]. PET/CT 04/27/16 showed no metastatic disease. Pt was found wandering [place] bus [place]. Pt is not cooperative for remaining history and ROS. Recently started on chemo with H/O Dr. Rowan. Chart reviewed per [facility] and [facility] PMHx: as above FHx: mother-DM SHx: denies Social Hx: exsmoker, denies EtOH, drugs Allergies: NKDA Meds: checked in [facility] Review of Systems - Constitutional Constitutional: As Per HPI, Anorexia, Chills, Fever - EENT Eyes: absent: As Per HPI, Blind Spots, Blurred Vision, Change in Vision, Decreased Night Vision, Diplopia, Discharge, Dry Eye, Exophthalmos, Floaters, Irritation, Itchy Eyes, Loss of Peripheral Vision, Pain, Photophobia, Requires Corrective Lenses, Sees Flashes, Spots in Vision, Tunnel Vision, Other Visual Disturbances, Loss of Vision, Other Ears: absent: As Per HPI, Decreased Hearing, Ear Discharge, Ear Pain, Tinnitus, Abnormal Hearing, Disequilibrium, Dizziness, Other Nose/Mouth/Throat: absent: As Per HPI, Epistaxis, Nasal Congestion, Nasal Discharge, Nasal Obstruction, Nasal Trauma, Nose Pain, Post Nasal Drip, Sinus Pain, Sinus Pressure, Bleeding Gums, Change in Voice, Dental Pain, Dry Mouth, Dysphagia, Halitosis, Hoarsness, Lip Swelling, Mouth Lesions, Mouth Pain, Odynophagia, Sore Throat, Throat Swelling, Tongue Swelling, Facial Pain, Neck Pain, Neck Mass, Other - Cardiovascular Cardiovascular: absent: As Per HPI, Acrocyanosis, Chest Pain, Chest Pain at Rest , Chest Pain with Activity, Claudication, Diaphoresis, Dyspnea, Dyspnea on Exertion, Edema, Irregular Heart Rhythm, Pain Radiating to Arm/Neck/Jaw, Leg Edema, Leg Ulcers, Lightheadedness, Orthopnea, Palpitations, Paroxysmal Nocturnal Dyspnea, Pedal Edema, Radiating Pain, Rapid Heart Rate, Slow Heart Rate, Syncope, Other - Respiratory Respiratory: absent: As Per HPI, Cough, Dyspnea, Hemoptysis, Dyspnea on Exertion , Wheezing, Snoring, Stridor, Pain on Inspiration, Chest Congestion, Excessive Mucous Production, Change in Mucous Color, Pain with Coughing, Other - Gastrointestinal Gastrointestinal: As Per HPI, Abdominal Pain - Genitourinary Genitourinary: absent: As Per HPI, Change in Urinary Stream, Difficulty Urinating, Dysuria, Flank Pain, Hematuria, Pyuria, Nocturia, Urinary Incontinence, Urinary Frequency, Urinary Hesitance, Urinary Urgency, Voiding Freq/Small Amts, Freq UTI, Hx Renal/Bladder Calculi, Hx /Renal Surgery, Bladder Distension, Other - Musculoskeletal Musculoskeletal: absent: As Per HPI, Abnormal Gait, Arthralgias, Atrophy, Back Pain, Deformity, Joint Swelling, Limited Range of Motion, Loss of Height, Muscle Cramps, Muscle Weakness, Myalgias, Neck Pain, Numbness, Radiating Pain into Limb, Stiffness, Tingling, Other - Integumentary Integumentary: absent: As Per HPI, Acne, Alopecia, Bleeding Lesions, Change in Hair, Change in Nails, Change in Pigmentation, Changing Lesions, Dry Skin, Erythema, Furuncle, Hirsutism, Lesions, New Lesions, Non-Healing Lesions, Photosensitivity, Pruritus, Rash, Skin Pain, Skin Ulcer, Sores, Striae, Swelling , Unusual Bruising, Wounds, Jaundice, Other - Neurological Neurological: absent: As Per HPI, Abnormal Gait, Abnormal Hearing, Abnormal Movements, Abnormal Speech, Behavioral Changes, Burning Sensations, Confusion, Convulsions, Disequilibrium, Dizziness, Numbness, Focal Weakness, Frequent Falls , Headaches, Lack of Coordination, Loss of Vision, Memory Loss, Paresthesias, Radicular Pain, Restless Legs, Sensory Deficit, Syncope, Tingling, Tremor, Vertigo, Weakness, Other Visual Disturbances, Other - Psychiatric Psychiatric: absent: As Per HPI, Abnormal Sleep Pattern, Anhedonia, Anxiety, Auditory Hallucinations, Behavioral Changes, Change in Appetite, Change in Libido, Confusion, Depression, Difficulty Concentrating, Hallucinations, Homicidal Ideation, Hopelessness, Irritability, Memory Loss, Mood Swings, Panic Attacks, Paranoia, Suicidal Ideation, Visual Hallucinations, Tactile Hallucinations, Other - Endocrine Endocrine: absent: As Per HPI, Change in Body Appearance, Change in Libido, Cold Intolorance, Deepening of Voice, Excessive Sweating, Fatigue, Flushing, Heat Intolorance, Increase in Ring/Shoe/Hat Size, Palpitations, Polydipsia, Polyphagia, Polyuria, Other - Hematologic/Lymphatic Hematologic: absent: As Per HPI, Easy Bleeding, Easy Bruising, Lymphadenopathy, Other Past Patient History - Past Medical History & Family History Past Medical History?: Yes - Past Social History Smoking Status: Former Smoker - CARDIAC Hx Pacemaker: No - PULMONARY Hx Asthma: Yes - NEUROLOGICAL Hx Neurological Disorder: No Hx Paralysis: No - HEENT Hx HEENT Problems: No - RENAL Hx Chronic Kidney Disease: No - ENDOCRINE/METABOLIC Hx Endocrine Disorders: Yes Other/Comment: pre diabetic - HEMATOLOGICAL/ONCOLOGICAL Hx Human Immunodeficiency Virus (HIV): No - INTEGUMENTARY Hx Dermatological Problems: Yes Hx Squamous Cell: Yes (FACE) - MUSCULOSKELETAL/RHEUMATOLOGICAL Hx Musculoskeletal Disorders: No Hx Falls: No - GASTROINTESTINAL Hx Gastritis: Yes (Self reported; all other history obtained from previous medical charts) - GENITOURINARY/GYNECOLOGICAL Hx Genitourinary Disorders: No - PSYCHIATRIC Hx Psychophysiologic Disorder: No Hx Substance Use: No - SURGICAL HISTORY Hx Surgeries: Yes (COLONOSCOPY) - ANESTHESIA Hx Anesthesia: No Hx Anesthesia Reactions: No Hx Malignant Hyperthermia: No Meds Allergies/Adverse Reactions: Allergies Allergy/AdvReac Type Severity Reaction Status Date / Time No Known Allergies Allergy Verified 06/13/16 17:31 - Medications Medications: Current Medications Acetaminophen (Tylenol 325mg Tab) 650 mg PO Q6 PRN PRN Reason: Pain, Mild (1-3) Acetaminophen (Tylenol 325mg Tab) 650 mg PO Q6 PRN PRN Reason: Fever >100.4 F Last Admin: 06/14/16 21:46 Dose: 650 mg Albuterol Sulfate (Proair Hfa) 2 puff IH Q4H PRN PRN Reason: Shortness of Breath Home Med (Dronabinol [Marinol]) 2.5 mg PO BID [facility] Sodium Chloride (Sodium Chloride 0.9%) 1,000 mls @ 100 mls/hr IV .Q10H [facility] Stop: 06/15/16 21:07 Last Admin: 06/15/16 08:48 Dose: 100 mls/hr Ketorolac Tromethamine (Toradol) 15 mg IVP Q6 PRN PRN Reason: Pain, moderate (4-7) Ondansetron HCl (Zofran Inj) 4 mg IVP Q6 PRN PRN Reason: Nausea/Vomiting Oxycodone/Acetaminophen (Percocet 5/325 Mg Tab) 1 tab PO Q4H PRN PRN Reason: Pain, severe (8-10) Stop: 06/16/16 20:31 Last Admin: 06/14/16 20:04 Dose: 1 tab Pantoprazole Sodium (Protonix Ec Tab) 20 mg PO DAILY [facility] Last Admin: 06/15/16 08:46 Dose: 20 mg Physical Exam - Constitutional Appears: Non-toxic, Chronically Ill - Head Exam Head Exam: NORMOCEPHALIC - Eye Exam Eye Exam: PERRL. absent: Scleral icterus - ENT Exam ENT Exam: Mucous Membranes Dry, Normal External Ear Exam - Neck Exam Neck exam: Negative for: Lymphadenopathy - Respiratory Exam Respiratory Exam: Decreased Breath Sounds, Rhonchi - Cardiovascular Exam Cardiovascular Exam: REGULAR RHYTHM, +S1, +S2 - GI/Abdominal Exam GI & Abdominal Exam: Diminished Bowel Sounds, Distended, Hypoactive Bowel Sounds , Soft. absent: Guarding, Tenderness - Rectal Exam Rectal Exam: Deferred - Exam Exam: NORMAL INSPECTION - Extremities Exam Extremities exam: Positive for: pedal pulses present. Negative for: calf tenderness, pedal edema, tenderness - Back Exam Back exam: absent: CVA tenderness (L), CVA tenderness (R), paraspinal tenderness - Neurological Exam Neurological exam: Alert, CN II-XII Intact, Oriented x3, Reflexes Normal - Psychiatric Exam Psychiatric exam: Normal Mood - Skin Skin Exam: Dry, Intact Results - Vital Signs Recent Vital Signs: Last Vital Signs Temp 97.5 F L 06/15/16 07:25 Pulse 60 06/15/16 07:25 Resp 20 06/15/16 07:25 BP 101/61 06/15/16 07:25 Pulse Ox 95 06/15/16 07:25 - Labs Result Diagrams: 06/16/16 07:45 06/16/16 07:45 Labs: Laboratory Results - last 24 hr 06/15/16 06/15/16 06/15/16 06:40 06:40 06:40 WBC 2.3 L D RBC 2.52 L Hgb 7.8 L Hct 23.1 L MCV 92.0 MCH 30.8 MCHC 33.5 RDW 16.1 H Plt Count 41 L MPV 7.4 Neut % (Auto) 74.6 Lymph % (Auto) 20.2 [place] % (Auto) 4.9 Eos % (Auto) 0.1 Baso % (Auto) 0.2 Neut # 1.7 L Lymph # 0.5 L [place] # 0.1 Eos # 0.0 Baso # 0.0 Sodium 123 L Potassium 3.6 Chloride 95 L Carbon Dioxide 25 Anion Gap 7 L BUN 14 Creatinine 0.6 L Est GFR ( Amer) > 60 Est GFR (Non-Af Amer) > 60 Random Glucose 99 Lactic Acid Calcium 8.1 L Total Bilirubin 1.1 AST 48 ALT 46 Alkaline Phosphatase 96 Total Protein 5.1 L Albumin 2.3 L Globulin 2.8 Albumin/Globulin Ratio 0.8 L Vitamin B12 HIV 1&2 Antibody Screen Negative 06/15/16 06/15/16 06/15/16 11:30 11:30 12:17 WBC RBC Hgb 8.1 L Hct 24.0 L MCV MCH MCHC RDW Plt Count MPV Neut % (Auto) Lymph % (Auto) [place] % (Auto) Eos % (Auto) Baso % (Auto) Neut # Lymph # [place] # Eos # Baso # Sodium 127 L Potassium 3.5 L Chloride 96 L Carbon Dioxide 25 Anion Gap 10 BUN 15 Creatinine 0.5 L Est GFR ( Amer) > 60 Est GFR (Non-Af Amer) > 60 Random Glucose 157 H Lactic Acid 1.6 Calcium 8.2 L Total Bilirubin AST ALT Alkaline Phosphatase Total Protein Albumin Globulin Albumin/Globulin Ratio Vitamin B12 > 1000 H HIV 1&2 Antibody Screen Assessment & Plan (1) Dehydration Status: Acute (2) Leukopenia Status: Acute (3) Pancreatic cancer Status: Acute - Assessment and Plan (Free Text) Assessment: check cultures iv antibiotics
[2016-06-15] MEDS: Cefepime 1 GM in Sodium Chloride 0.9% 100 ML IVPB SCH (20:35)
[2016-06-15 21:45] LABS: FOLATE 8.5 ng/mL
[2016-06-16 08:10] LABS: HEMATOCRIT 22.9 % (35.0-51.0); MEAN CELL VOLUME 91.8 fl (80.0-94.0); MEAN CORPUSCULAR HEMOGLOBIN 31.4 pg (27.0-31.0); MEAN CORPUSCULAR HGB CONC 34.2 g/dL (33.0-37.0); RED CELL DISTRIBUTION WIDTH 16.2 % (11.5-14.5); WHITE BLOOD COUNT 3.2 K/uL (4.8-10.8)
--- NOTE | 2016-06-16 08:24 | CP.PCM.PN ---
Addendum entered and electronically signed by Napoleon Esquivel MD 06/16/16 12 :39: chest xray show left lower lobe pneumonia and suspected small pleural effusion. Contacted ID, will continue Cefepime only. Pt dropped Hb again. Contacted Heme/ onc, will transfuse 1 unit PRBCs today. Original Note: Subjective - Date & Time of Evaluation Date of Evaluation: 06/16/16 Time of Evaluation: 07:10 - Subjective Subjective: pt seen and examined at bedside today. No acute events overnight. Lying in bed comfortably, NAD. No new medical complaints. OOB/ambulating with assistance. Denies fever/chills, headaches, visual disturbances, CP/SOB/Palpitations, N/V/D/ C, urinary symptoms, numbness/tingling. Objective - Vital Signs/Intake and Output Vital Signs (last 24 hours): Temp Pulse Resp BP Pulse Ox 97.5 F L 63 20 120/73 96 06/16/16 08:13 06/16/16 08:13 06/16/16 08:13 06/16/16 08:13 06/16/16 08:13 - Medications Medications: Current Medications Acetaminophen (Tylenol 325mg Tab) 650 mg PO Q6 PRN PRN Reason: Pain, Mild (1-3) Acetaminophen (Tylenol 325mg Tab) 650 mg PO Q6 PRN PRN Reason: Fever >100.4 F Last Admin: 06/14/16 21:46 Dose: 650 mg Albuterol Sulfate (Proair Hfa) 2 puff IH Q4H PRN PRN Reason: Shortness of Breath Home Med (Dronabinol [Marinol]) 2.5 mg PO BID [facility] Cefepime HCl 1 gm/ Sodium (Chloride) 100 mls @ 100 mls/hr IVPB Q12 [facility] Last Admin: 06/15/16 20:35 Dose: 100 mls/hr Ketorolac Tromethamine (Toradol) 15 mg IVP Q6 PRN PRN Reason: Pain, moderate (4-7) Ondansetron HCl (Zofran Inj) 4 mg IVP Q6 PRN PRN Reason: Nausea/Vomiting Oxycodone/Acetaminophen (Percocet 5/325 Mg Tab) 1 tab PO Q4H PRN PRN Reason: Pain, severe (8-10) Stop: 06/16/16 20:31 Last Admin: 06/14/16 20:04 Dose: 1 tab Pantoprazole Sodium (Protonix Ec Tab) 20 mg PO DAILY NGA Last Admin: 06/15/16 08:46 Dose: 20 mg - Labs Labs: 06/15/16 11:30 06/15/16 12:17 PT 13.4 SECONDS (9.6-11.2) H 06/14/16 06:20 INR 1.29 (0.92-1.08) H 06/14/16 06:20 APTT 40.0 SECONDS (23.3-32.5) H 06/14/16 06:20 - Constitutional Appears: Non-toxic, No Acute Distress, Cachectic, Chronically Ill - Head Exam Head Exam: ATRAUMATIC - Eye Exam Eye Exam: EOMI Pupil Exam: PERRL - ENT Exam ENT Exam: Mucous Membranes Moist - Respiratory Exam Respiratory Exam: Clear to Ausculation Bilateral, NORMAL BREATHING PATTERN. absent: Accessory Muscle Use, Rales, Rhonchi, Wheezes, Respiratory Distress - Cardiovascular Exam Cardiovascular Exam: REGULAR RHYTHM, RRR, +S1, +S2. absent: Tachycardia, JVD, Rubs, Murmur - GI/Abdominal Exam GI & Abdominal Exam: Soft, Normal Bowel Sounds. absent: Distended, Firm, Guarding, Rigid, Tenderness, Organomegaly - Extremities Exam Extremities Exam: Normal Inspection. absent: Calf Tenderness, Pedal Edema - Neurological Exam Neurological Exam: Alert, Awake, CN II-XII Intact, Oriented x3 - Psychiatric Exam Psychiatric exam: Normal Affect, Normal Mood - Skin Skin Exam: Dry, Intact, Normal Color, Warm Assessment and Plan (1) Dehydration Assessment & Plan: -delirium resolved - Na: 127 -BUN/Cr: 14/0.6 -IV NS @ 100m/s per hr -f/u BMP -Folate/B12: wnl -AM Cortisol: pending Status: Acute (2) Pancytopenia Assessment & Plan: Leukopenia: -WBC: 3.2 -blood cx: 1st specimen negative for growth -second culture: negative after 24 hours -urine cx: 1st specimen negative for growth, f/u second cx Normocytic Anemia: -MCV: 91.0 -Hb: 7.8 -Type and Screen -consider possible transfusion -will continue to monitor Thrombocytopenia: -plt: 52 -hold Lovenox As per Dr. Rowan: pancytopenia is most likely secondary to chemotherapy, add CBC with diff daily to follow. no transfusion indicated for now, pt is not a good candidate for chemotherapy, recommends palliative care consult. -elevated Procalcitonin: no source of infection identified, f/u CXR result, maybe secondary to malignancy -Spiking fevers prior night, no apparent source -ID consult: as per Dr. Wang, pt started on Cefepime 1gm Q12 ABX day 2 Status: Acute (3) Hyponatremia Assessment & Plan: -Na: 127 today -AM Cortisol: pending -IV fluids, NS @ 100mls/hr -f/u BMP Status: Chronic (4) Pancreatic carcinoma Assessment & Plan: palliative care as per Heme/onc, pt not a good candidate for chemotherapy Status: Chronic (5) Intermittent asthma Assessment & Plan: Albuterol 2 puff IH Q4 PRN Status: Chronic (6) DVT prophylaxis Assessment & Plan: SCDs ambulation no anticoagulation due to severe thrombocytopenia Status: Acute - Assessment and Plan (Free Text) Plan: currently deciding on where pt can go for care. Unable to return to apartment as he has to move out this weekend. media services specialist contacted. Family contacted.
[2016-06-16 08:41] LABS: BLOOD UREA NITROGEN 14 mg/dl (9-20); CALCIUM 8.1 mg/dL (8.4-10.2); CARBON DIOXIDE 24 mmol/L (22-30); CHLORIDE 99 mmol/L (98-107); GFR AFRICAN-AMERICAN > 60; GLUCOSE,RANDOM 108 mg/dL (75-110); POTASSIUM 4.1 MMOL/L (3.6-5.0); SODIUM 127 mmol/l (132-148)
[2016-06-16] MEDS: Cefepime 1 GM in Sodium Chloride 0.9% 100 ML IVPB SCH ×2 (10:18→21:47)
[2016-06-16] MEDS: Pantoprazole 20 mg EC Tab PO SCH (10:18)
--- NOTE | 2016-06-16 12:06 | RAD ---
PROCEDURE: CHEST RADIOGRAPH, 1 VIEW HISTORY: Cough COMPARISON: 06/13/2016. FINDINGS: LUNGS: There is airspace disease in the left lower lobe. There is a nodular opacity in the left lower The right lung is clear. PLEURA: No pneumothorax or right pleural fluid seen. There is blunting of the left costophrenic angle. CARDIOVASCULAR: The heart is normal in size. Atherosclerotic aortic arch calcifications are present. . OSSEOUS STRUCTURES: No significant abnormalities. VISUALIZED UPPER ABDOMEN: Normal. OTHER FINDINGS: None. IMPRESSION: Left lower lobe pneumonia and suspect small pleural effusion. Lobe. Nodular opacity in the left lower lobe likely represents nipple shadow. PA radiograph with nipple markers are recommended for definitive evaluation.
--- NOTE | 2016-06-16 14:05 | CP.PCM.PN ---
Subjective - Date & Time of Evaluation Date of Evaluation: 06/16/16 Time of Evaluation: 08:00 - Subjective Subjective: fever / cytopenia iv rx ordered Objective - Vital Signs/Intake and Output Vital Signs (last 24 hours): Temp Pulse Resp BP Pulse Ox 97.5 F L 63 20 120/73 96 06/16/16 08:13 06/16/16 08:13 06/16/16 08:13 06/16/16 08:13 06/16/16 08:13 - Medications Medications: Current Medications Acetaminophen (Tylenol 325mg Tab) 650 mg PO Q6 PRN PRN Reason: Pain, Mild (1-3) Acetaminophen (Tylenol 325mg Tab) 650 mg PO Q6 PRN PRN Reason: Fever >100.4 F Last Admin: 06/14/16 21:46 Dose: 650 mg Home Med (Dronabinol [Marinol]) 2.5 mg PO BID [facility] Cefepime HCl 1 gm/ Sodium (Chloride) 100 mls @ 100 mls/hr IVPB Q12 [facility] Last Admin: 06/16/16 10:18 Dose: 100 mls/hr Ketorolac Tromethamine (Toradol) 15 mg IVP Q6 PRN PRN Reason: Pain, moderate (4-7) Ondansetron HCl (Zofran Inj) 4 mg IVP Q6 PRN PRN Reason: Nausea/Vomiting Oxycodone/Acetaminophen (Percocet 5/325 Mg Tab) 1 tab PO Q4H PRN PRN Reason: Pain, severe (8-10) Stop: 06/16/16 20:31 Last Admin: 06/14/16 20:04 Dose: 1 tab Pantoprazole Sodium (Protonix Ec Tab) 20 mg PO DAILY [facility] Last Admin: 06/16/16 10:18 Dose: 20 mg - Labs Labs: 06/16/16 07:45 06/16/16 07:45 PT 13.4 SECONDS (9.6-11.2) H 06/14/16 06:20 INR 1.29 (0.92-1.08) H 06/14/16 06:20 APTT 40.0 SECONDS (23.3-32.5) H 06/14/16 06:20 - Constitutional Appears: Non-toxic, Cachectic, Chronically Ill - Head Exam Head Exam: NORMOCEPHALIC - Eye Exam Eye Exam: PERRL. absent: Scleral icterus - ENT Exam ENT Exam: Mucous Membranes Dry, Normal External Ear Exam - Neck Exam Neck Exam: absent: Lymphadenopathy - Respiratory Exam Respiratory Exam: Decreased Breath Sounds, Clear to Ausculation Bilateral - Cardiovascular Exam Cardiovascular Exam: REGULAR RHYTHM, +S1, +S2 - GI/Abdominal Exam GI & Abdominal Exam: Distended, Soft. absent: Tenderness - Rectal Exam Rectal Exam: Deferred - Exam Exam: NORMAL INSPECTION Assessment and Plan (1) Dehydration Status: Acute (2) Failure to thrive Status: Acute (3) Leukopenia Status: Acute (4) Pancreatic cancer Status: Acute (5) Pancytopenia Status: Acute
[2016-06-16] MEDS: Sodium Chloride 0.9% 1,000 ML IV SCH (16:12)
[2016-06-16 16:51] VITALS: RESP 18; O2SAT 97
[2016-06-16 16:58] LABS: CORTISOL AM 35.7 ug/dL (4.46-22.7)
[2016-06-16 23:48] VITALS: BP 130/77; PULSE 66; TEMP 97.2
[2016-06-17] MEDS: Sodium Chloride 0.9% 1,000 ML IV SCH (04:18)
[2016-06-17 07:42] LABS: HEMATOCRIT 27.6 % (35.0-51.0); MEAN CELL VOLUME 88.6 fl (80.0-94.0); MEAN CORPUSCULAR HEMOGLOBIN 30.1 pg (27.0-31.0); RED CELL DISTRIBUTION WIDTH 18.2 % (11.5-14.5); WHITE BLOOD COUNT 4.1 K/uL (4.8-10.8)
[2016-06-17 09:54] LABS: BLOOD UREA NITROGEN 16 mg/dl (9-20); CALCIUM 8.4 mg/dL (8.4-10.2); CARBON DIOXIDE 24 mmol/L (22-30); CHLORIDE 98 mmol/L (98-107); GFR AFRICAN-AMERICAN > 60; GLUCOSE,RANDOM 101 mg/dL (75-110); POTASSIUM 3.9 MMOL/L (3.6-5.0); SODIUM 128 mmol/l (132-148)
--- NOTE | 2016-06-17 10:24 | CP.PCM.DIS ---
Provider - Provider Date of Admission: 06/13/16 19:42 Attending physician: Angela Christianson MD Time Spent in preparation of Discharge (in minutes): 35 Diagnosis - Discharge Diagnosis (1) Pneumonia Status: Acute Comment: pneumonia on CXR, was already on empiric Abx, signed out AMA, given script for Levofloxacin. Hospital Course - Lab Results Lab Results: Micro Results 06/14/16 01:15 Blood Blood Culture - Preliminary NO GROWTH AFTER 48 HOURS 06/14/16 00:40 Blood Blood Culture - Preliminary NO GROWTH AFTER 48 HOURS 06/13/16 19:45 Urine,Clean Catch Urine Culture - Final No Growth (<1,000 CFU/ML) Most Recent Lab Values WBC 4.1 K/uL (4.8-10.8) L 06/17/16 05:30 RBC 3.11 Mil/uL (4.40-5.90) L 06/17/16 05:30 Hgb 9.4 g/dL (12.0-18.0) L 06/17/16 05:30 Hct 27.6 % (35.0-51.0) L 06/17/16 05:30 MCV 88.6 fl (80.0-94.0) D 06/17/16 05:30 MCH 30.1 pg (27.0-31.0) 06/17/16 05:30 MCHC 34.0 g/dL (33.0-37.0) 06/17/16 05:30 RDW 18.2 % (11.5-14.5) H 06/17/16 05:30 Plt Count 85 K/uL (130-400) L D 06/17/16 05:30 MPV 7.4 fl (7.2-11.7) 06/15/16 06:40 Neut % (Auto) 74.6 % (50.0-75.0) 06/15/16 06:40 Lymph % (Auto) 20.2 % (20.0-40.0) 06/15/16 06:40 [place] % (Auto) 4.9 % (0.0-10.0) 06/15/16 06:40 Eos % (Auto) 0.1 % (0.0-4.0) 06/15/16 06:40 Baso % (Auto) 0.2 % (0.0-2.0) 06/15/16 06:40 Neut # 1.7 K/uL (1.8-7.0) L 06/15/16 06:40 Lymph # 0.5 K/uL (1.0-4.3) L 06/15/16 06:40 [place] # 0.1 K/uL (0.0-0.8) 06/15/16 06:40 Eos # 0.0 K/uL (0.0-0.7) 06/15/16 06:40 Baso # 0.0 K/uL (0.0-0.2) 06/15/16 06:40 PT 13.4 SECONDS (9.6-11.2) H 06/14/16 06:20 INR 1.29 (0.92-1.08) H 06/14/16 06:20 APTT 40.0 SECONDS (23.3-32.5) H 06/14/16 06:20 Sodium 128 mmol/l (132-148) L 06/17/16 09:20 Potassium 3.9 MMOL/L (3.6-5.0) 06/17/16 09:20 Chloride 98 mmol/L (98-107) 06/17/16 09:20 Carbon Dioxide 24 mmol/L (22-30) 06/17/16 09:20 Anion Gap 10 (10-20) 06/17/16 09:20 BUN 16 mg/dl (9-20) 06/17/16 09:20 Creatinine 0.5 mg/dL (0.8-1.5) L 06/17/16 09:20 Est GFR ( Amer) > 60 06/17/16 09:20 Est GFR (Non-Af Amer) > 60 06/17/16 09:20 POC Glucose (mg/dL) 125 mg/dL (65-110) H 06/13/16 17:52 Random Glucose 101 mg/dL (75-110) 06/17/16 09:20 Lactic Acid 1.6 MMOL/L (0.7-2.1) 06/15/16 11:30 Calcium 8.4 mg/dL (8.4-10.2) 06/17/16 09:20 Phosphorus 2.8 mg/dl (2.5-4.5) 06/13/16 18:10 Magnesium 1.8 MG/DL (1.6-2.3) 06/13/16 18:10 Total Bilirubin 1.1 mg/dl (0.2-1.3) 06/15/16 06:40 AST 48 U/L (17-59) 06/15/16 06:40 ALT 46 U/L (21-72) 06/15/16 06:40 Alkaline Phosphatase 96 U/L (38-126) 06/15/16 06:40 Ammonia < 9 umo/L (16-60) L 06/13/16 17:50 Troponin I < 0.0120 ng/mL (0.00-0.120) 06/13/16 18:10 Total Protein 5.1 G/DL (6.3-8.2) L 06/15/16 06:40 Albumin 2.3 g/dL (3.5-5.0) L 06/15/16 06:40 Globulin 2.8 gm/dL (2.2-3.9) 06/15/16 06:40 Albumin/Globulin Ratio 0.8 (1.0-2.1) L 06/15/16 06:40 Lipase 12 U/L (23-300) L 06/13/16 18:10 Vitamin B12 > 1000 pg/mL (239-931) H 06/15/16 12:17 Folate 8.5 ng/mL 06/15/16 12:17 Procalcitonin 15.84 NG/ML (0.19-0.49) H 06/15/16 11:30 TSH 3rd Generation 2.52 mIU/ML (0.46-4.68) 06/13/16 18:10 Cortisol AM Sample 35.7 ug/dL (4.46-22.7) H 06/16/16 07:45 Urine Color Yellow (YELLOW) 06/13/16 19:45 Urine Appearance Clear (CLEAR) 06/13/16 19:45 Urine pH 7.0 (5.0-8.0) 06/13/16 19:45 Ur Specific [place] 1.011 (1.003-1.030) 06/13/16 19:45 Urine Protein Negative mg/dL (NEGATIVE) 06/13/16 19:45 Urine Glucose (UA) Neg mg/dL (Normal) 06/13/16 19:45 Urine Ketones Trace mg/dL (NEGATIVE) 06/13/16 19:45 Urine Blood Negative (NEGATIVE) 06/13/16 19:45 Urine Nitrate Negative (NEGATIVE) 06/13/16 19:45 Urine Bilirubin Negative (NEGATIVE) 06/13/16 19:45 Urine Urobilinogen 0.2-1.0 mg/dL (0.2-1.0) 06/13/16 19:45 Ur Leukocyte Esterase Neg Panfilo/uL (Negative) 06/13/16 19:45 Urine Opiates Screen Negative (NEGATIVE) 06/13/16 19:45 Urine Methadone Screen Negative (NEGATIVE) 06/13/16 19:45 Ur Barbiturates Screen Negative (NEGATIVE) 06/13/16 19:45 Ur Phencyclidine Scrn Negative (NEGATIVE) 06/13/16 19:45 Ur Amphetamines Screen Negative (NEGATIVE) 06/13/16 19:45 U Benzodiazepines Scrn Negative (NEGATIVE) 06/13/16 19:45 U Oth Cocaine Metabols Negative (NEGATIVE) 06/13/16 19:45 U Cannabinoids Screen Positive (NEGATIVE) H 06/13/16 19:45 Alcohol, Quantitative < 10 mg/dl (0-10) 06/13/16 18:10 RPR Nonreactive (NONREACTIVE) 06/15/16 12:06 HIV 1&2 Antibody Screen Negative (NEGATIVE) 06/15/16 06:40 Blood Type O POSITIVE 06/16/16 14:35 Antibody Screen Negative 06/16/16 14:35 Crossmatch See Detail 06/16/16 14:35 BBK History Checked Patient has bt 06/16/16 14:35 - Hospital Course Hospital Course: 75 y/o male with a PMHx of pancreatic cancer and intermittent asthma was admitted for dehydration and pancytopenia. Pt was orginally admitted in altered mental status with hyponatremia and pancytopenia. During his stay, he was given IV fluids and Dr. Rowan was notified about the patients pancytopenia. He also had episode of a spiking fevers and elevated procalcitonin. He was empirically started on Cefepime by ID.Blood and urine cultures were negative x2 but left lobe pneumonia was found on CXR. He was continued on IV Cefepime. Hem/onc reported that patient was not a good candidate for chemo. The patient was doing well, ambulating without assistance, labs were improving and he reported he needed to leave to go to his apartment to move his things or else they would end up on the street. He signed out AMA Sunday morning and understood the potential consequences with his leaving but reports he was going to return later in the afternoon. Meds on Discharge: Levofloxacin 500mg TID x14 days Discharge Exam - Head Exam Head Exam: ATRAUMATIC, NORMOCEPHALIC - Eye Exam Eye Exam: EOMI Pupil Exam: PERRL - ENT Exam ENT Exam: Mucous Membranes Moist - Respiratory Exam Respiratory Exam: Clear to PA & Lateral, NORMAL BREATHING PATTERN, UNREMARKABLE - Cardiovascular Exam Cardiovascular Exam: REGULAR RHYTHM, RRR, +S1, +S2. absent: Tachycardia, JVD, Rubs, Systolic Murmur - GI/Abdominal Exam GI & Abdominal Exam: Normal Bowel Sounds, Soft, Unremarkable. absent: Tenderness - Neurological Exam Neurological exam: Alert, CN II-XII Intact, Normal Gait, Oriented x3 - Psychiatric Exam Psychiatric exam: Normal Affect, Normal Mood Discharge Plan - Follow Up Plan Condition: FAIR Disposition: AGAINST MEDICAL ADVICE
== END 2016-06-17 08:30 | disposition left against medical advice (07) | DRG 435 ==
LOC: H.ER 17:25 → H.ERHOLD 19:42 → H.MEDSURG1 20:50
PROVIDERS: ADMIT Family Medicine Geriatric Medicine; ATTEND Family Medicine Geriatric Medicine
DX: C25.9 Malignant neoplasm of pancreas, unspecified (principal); J18.9 Pneumonia, unspecified organism; D61.810 Antineoplastic chemotherapy induced pancytopenia; D61.818 Other pancytopenia; J90 Pleural effusion, not elsewhere classified; E86.0 Dehydration; E87.1 Hypo-osmolality and hyponatremia; Z87.891 Personal history of nicotine dependence; J45.20 Mild intermittent asthma, uncomplicated; Z51.5 Encounter for palliative care; R62.7 Adult failure to thrive